=== PATIENT | male | born 1960 | race Caucasian/White ===

== ENCOUNTER → 2016-07-04 | Outpatient (CLI) | payer BC ==
--- NOTE | 2016-07-04 10:03 | XR ---
EXAMINATION TYPE: XR chest 2V DATE OF EXAM: 07/04/2016 9:56 AM COMPARISON: NONE HISTORY: Shortness of breath TECHNIQUE: Frontal and lateral views of the chest are obtained. FINDINGS: Scattered senescent parenchymal changes noted. Hyperinflation compatible with COPD. No evidence for infiltrate. No evidence for atelectasis. Heart size is stable. Mediastinal structures are stable and grossly unremarkable. No evidence for hilar prominence. Degenerative changes dorsal spine. IMPRESSION: 1. No evidence for acute pulmonary disease.
== END | disposition home or self-care (01) ==
LOC: RADXRMAIN 09:45
PROVIDERS: ATTEND Surgery
DX: J90 Pleural effusion, not elsewhere classified (principal)
CPT/HCPCS: 71020

== ENCOUNTER 2019-11-26 15:56 | Inpatient (IN) | payer BC ==
[2019-11-26] MEDS ORDERED: DILTIAZEM DRIP BOLUS FROM BAG 1 MG SOLN IV ONE (16:54)
[2019-11-26] MEDS ORDERED: DILTIAZEM 125 MG in SODIUM CHLORIDE 0.9% 100 ML IV SCH (17:00)
[2019-11-26 17:18] LABS: Glucose,Whole Blood 245 mg/dL (75-99)
[2019-11-26] MEDS ORDERED: traMADol 50 MG TAB PO PRN (17:20)
[2019-11-26] MEDS: metFORMIN 500 MG TAB PO SCH (17:38)
[2019-11-26] MEDS: METOPROLOL SUCCINATE (ER) 25 MG TAB.ER.24H PO SCH ×2 (17:38→20:22)
[2019-11-26 20:20] LABS: Glucose,Whole Blood 176 mg/dL (75-99)
[2019-11-26] MEDS: APIXABAN 5 MG TAB PO SCH (20:22)
[2019-11-27 04:12] VITALS: RESP 16
[2019-11-27 06:13] LABS: Glucose,Whole Blood 201 mg/dL (75-99)
[2019-11-27] MEDS: metFORMIN 500 MG TAB PO SCH (06:37)
[2019-11-27] MEDS ORDERED: LINAGLIPTIN 5 MG TABLET PO SCH (07:30)
[2019-11-27 08:01] VITALS: PULSE 71
[2019-11-27] MEDS ORDERED: PANTOPRAZOLE 40 MG TABLET PO SCH (08:15)
[2019-11-27] MEDS: APIXABAN 5 MG TAB PO SCH (08:21)
[2019-11-27] MEDS: METOPROLOL SUCCINATE (ER) 25 MG TAB.ER.24H PO SCH (08:21)
[2019-11-27] MEDS ORDERED: PANTOPRAZOLE 40 MG/10 ML VIAL IVP SCH (09:00)
[2019-11-27] MEDS ORDERED: ATORVASTATIN 20 MG TAB PO SCH (09:00)
[2019-11-27] MEDS ORDERED: ASPIRIN 81 MG PO SCH (09:00)
[2019-11-27 11:21] LABS: Glucose,Whole Blood 204 mg/dL (75-99)
[2019-11-27 11:25] VITALS: BP 105/73; TEMP 97.7
--- NOTE | 2019-11-27 15:10 | P.PN ---
Subjective Progress Note Date: 11/27/19 Discharge note This is a 59-year-old gentleman who is status post aortic valve replacement who was admitted to the hospital by Dr. Eddy, found to be in atrial fibrillation with rapid ventricular response at the office.patient was given a bolus of Cardizem and subsequently converted to normal sinus rhythm last evening. He's remained overall in a normal sinus rhythm, his dose of beta maynor he was taking at home has been increased. He feels well today, no palpitations and no shortness of breath. Objective - Vital Signs Vital signs: Vital Signs Temp 97.7 F 11/27/19 11:24 Pulse 71 11/27/19 11:24 Resp 16 11/27/19 11:24 BP 105/73 11/27/19 11:24 Pulse Ox 97 11/27/19 11:24 Intake & Output 11/26/19 11/27/19 11/27/19 18:59 06:59 18:59 Intake Total 440 480 Output Total 440 Balance 440 -440 480 Weight 103.419 kg 102.1 kg Intake: Oral 440 480 Output: Urine 440 Other: Voiding Method Toilet Toilet Toilet # Voids 2 2 - Exam PHYSICAL EXAMINATION: GENERAL:59-year-old gentleman in no acute distress at the time of my examination HEENT: Head is atraumatic, normocephalic. Pupils equal, round. Sclera anicteric. Conjunctiva are clear. Mucous membranes of the mouth are moist. Neck is supple. There is no elevated jugular venous pressure.no carotid bruit is heard. HEART EXAMINATION: [Heart S1, S2 normal. No murmur or gallop heard.] CHEST EXAMINATION:[ Lungs are clear to auscultation and precussion. No chest wall tenderness is noted on palpation or with deep breathing.] ABDOMEN: [ Soft, nontender. Bowel sounds are heard. No organomegaly noted]. EXTREMITIES:[ 2+ peripheral pulses with no evidence of peripheral edema and no calf tenderness noted]. NEUROLOGIC [patient is awake, alert and oriented 3] . - Labs Labs: Abnormal Lab Results - Last 24 Hours (Table) 11/26/19 11/26/19 11/27/19 Range/Units 16:58 20:19 06:12 POC Glucose (mg/dL) 245 H 176 H 201 H (75-99) mg/dL 11/27/19 Range/Units 11:19 POC Glucose (mg/dL) 204 H (75-99) mg/dL Assessment and Plan Plan: assessment and plan #1 atrial fibrillation with rapid ventricular response, paroxysmal #2 status post aortic valve replacement #3 diabetes #4 hyperlipidemia Plan Patient will be discharged home today, follow-up appointment with Dr. Eddy in the office post discharge.he will continue Eliquis 5 mg twice a day, aspirin 81 mg daily, Lipitor 20 mg daily, Glucophage, Toprol 25 mg by mouth twice a day,Pro tonix 40 mg daily. DNP note has been reviewed, I agree with a documented findings and plan of care. Patient was seen and examined.
== END 2019-11-27 14:18 | disposition home or self-care (01) | DRG 310 ==
LOC: 3SCARD 16:25
PROVIDERS: ADMIT Internal Medicine Interventional Cardiology; ATTEND Internal Medicine Interventional Cardiology
DX: I48.0 Paroxysmal atrial fibrillation (principal); E11.9 Type 2 diabetes mellitus without complications; Z95.2 Presence of prosthetic heart valve; I10 Essential (primary) hypertension; I34.0 Nonrheumatic mitral (valve) insufficiency; E78.5 Hyperlipidemia, unspecified; I25.10 Atherosclerotic heart disease of native coronary artery without angina pectoris; F17.210 Nicotine dependence, cigarettes, uncomplicated; Z79.01 Long term (current) use of anticoagulants; Z79.84 Long term (current) use of oral hypoglycemic drugs; Z79.1 Long term (current) use of non-steroidal anti-inflammatories (NSAID); Z79.82 Long term (current) use of aspirin; Z79.899 Other long term (current) drug therapy; Z95.5 Presence of coronary angioplasty implant and graft

== ENCOUNTER → 2019-12-17 | Outpatient (CLI) | payer BC ==
[2019-12-17 13:14] LABS: HCT 46.6 % (39.0-53.0); HGB 15.1 gm/dL (13.0-17.5); MCH 29.4 pg (25.0-35.0); MCHC 32.4 g/dL (31.0-37.0); MCV 90.7 fL (80.0-100.0); Mean Platelet Volume 6.8; Platelet Count 271 k/uL (150-450); RBC 5.14 m/uL (4.30-5.90); RDW 14.3 % (11.5-15.5); WBC 8.7 k/uL (3.8-10.6)
[2019-12-17 13:28] LABS: African American GFR (CKD) >90 (>60 ml/min/1.73 sqM); Anion Gap 11 mmol/L; Blood Urea Nitrogen 16 mg/dL (9-20); Carbon Dioxide 28 mmol/L (22-30); Chloride 97 mmol/L (98-107); Non-African American GFR(CKD) >90 (>60 ml/min/1.73 sqM); Potassium 5.1 mmol/L (3.5-5.1); Sodium 136 mmol/L (137-145)
== END | disposition home or self-care (01) ==
LOC: LABPAT 11:56
PROVIDERS: ATTEND Internal Medicine Interventional Cardiology
DX: Z01.818 Encounter for other preprocedural examination (principal); I25.10 Atherosclerotic heart disease of native coronary artery without angina pectoris
CPT/HCPCS: 36415; 80051; 82565; 84520; 85027

== ENCOUNTER → 2019-12-23 | Day surgery (SDC) | payer BC ==
[2019-12-19 10:47] VITALS: BMI 34.9
[~2019-12-23] MED LIST: ALPRAZolam 0.25 MG TAB PO PRN; ALPRAZolam 0.5 MG TAB PO PRN; ASPIRIN 325 MG TAB PO STA; ATORVASTATIN 80 MG TAB PO STA; HEPARIN SODIUM 1,000 UN/ML (10ML VL) IV ONE; HEPARIN SODIUM 1,000 UN/ML (10ML VL) ONE; INSULIN ASPART (NovoLOG) 100 UNIT/ML VIAL SQ SCH; IOPAMIDOL-370 100ML BTL INJ ONE; LIDOCAINE 1% INJ 10MG/ML (20 ML MDV) ONE; LIDOCAINE 1% INJ 10MG/ML (20 ML MDV) SQ ONE; MIDAZOLAM 2 MG/2 ML VIAL IVP ONE; NITROGLYCERIN SL TABS 0.4 MG TAB SUBLINGUAL PRN; RX INFO: IV CONTRAST WAS GIVEN 1 EACH MISC MISCELLANE PRN; SODIUM CHLORIDE 0.9% 1,000 ML IV SCH; SODIUM CHLORIDE 0.9% 1,000 ML in EMPTY BAG 1 BAG IV ONE; VERAPAMIL 2.5 MG/ML 2 ML AMP ONE; VERAPAMIL 2.5 MG/ML 4 ML VIAL INTRAARTER ONE; VERAPAMIL SYRINGE (5 MG/10 ML) INTRAARTER ONE
[2019-12-23 09:36] LABS: Glucose,Whole Blood 285 mg/dL (75-99)
[2019-12-23 09:46] VITALS: RESP 18
--- NOTE | 2019-12-23 11:53 | CC ---
CARDIAC CATHETERIZATION REPORT DATE OF SERVICE: December 23, 2019 PERFORMING PHYSICIAN: Jayesh Ascencio MD. PROCEDURE PERFORMED: Selective left coronary angiogram. INDICATION: This is a 59-year-old gentleman with coronary artery disease and prior stenting of the left circumflex, who was experiencing symptoms of chest discomfort concerning for severe underlying coronary artery disease. Also, he does have multiple risk factors including hypertension and dyslipidemia and paroxysmal atrial fibrillation. He would like a definitive diagnosis. APPROACH: Right radial artery. COMPLICATION: None. LEVEL OF SEDATION: Moderate with sedation length of 13 minutes. PROCEDURE DESCRIPTION: After obtaining an informed consent, the patient was brought to the cardiac laborer high density press. The right radial artery was cannulated using micropuncture technique, the micropuncture wire passed easily. Then I placed a 5-[place] sheath in the right radial artery. After that I did selective left coronary angiogram. The procedure was completed without any complication. SELECTIVE CORONARY ANGIOGRAM: 1. The left main is angiographically normal it bifurcates into LCX and LAD. 2. The LCX is a large caliber vessel and it is a dominant vessel. The proximal circumflex is angiographically normal. It gives rise into the first obtuse marginal branch which appeared to have mild disease only. The mid circ appeared to have mild disease only and gives rise into a second OM branch which appeared to be stented and the stent is patent. The circumflex distally is angiographically normal and bifurcates into PDA and PLV branches both appeared to be angiographically normal. 3. The LAD: The proximal LAD has a lesion appeared to be in the range of 40% to 50%. The mid LAD appeared to be normal and the LAD distally appeared to be normal as well. The LAD gives rise into the first and second diagonal branches, both appeared to be angiographically normal. 4. The RCA was not engaged. The RCA is known from before to be a small and nondominant vessel. CONCLUSION: 1. Patent stent in the second obtuse marginal branch of the left circumflex. 2. Mild to moderate nonobstructive disease involving the proximal LAD. POSTPROCEDURE MANAGEMENT: 1. Medical treatment. 2. Follow up with the patient. MMODL / IJN: [id number] /
[2019-12-23 17:26] VITALS: BP 140/74; PULSE 67
== END ==
LOC: CATHCVL 08:58
PROVIDERS: ATTEND Internal Medicine Interventional Cardiology
DX: I25.10 Atherosclerotic heart disease of native coronary artery without angina pectoris (principal); I10 Essential (primary) hypertension; I48.0 Paroxysmal atrial fibrillation; E11.9 Type 2 diabetes mellitus without complications; E78.5 Hyperlipidemia, unspecified; Z72.0 Tobacco use; Z95.5 Presence of coronary angioplasty implant and graft; Z95.4 Presence of other heart-valve replacement; Z79.82 Long term (current) use of aspirin; Z79.84 Long term (current) use of oral hypoglycemic drugs; Z79.01 Long term (current) use of anticoagulants; Z79.899 Other long term (current) drug therapy; Z82.49 Family history of ischemic heart disease and other diseases of the circulatory system
CPT/HCPCS: 93454; C1894 ×2; C1769; J2250; J2001; J1644; Q9967